=== PATIENT | male | born 1965 | race Caucasian/White ===

== ENCOUNTER → 2023-11-08 09:39 | Outpatient (REF) | payer BC, SELFPAY ==
[2023-11-08 12:33] LABS: % Basophils 0.8 % (0-2); % Eosinophils 3.2 % (0-6); % Immature Granulocytes 0.3 % (0-0.5); % Lymphocytes 15.8 % (20.5-51.1); % Monocytes 8.9 % (1.7-9.3); Absolute Basophils 0.1 10^3/uL (0-0.2); Absolute Eosinophils 0.2 10^3/uL (0-0.7); Absolute Lymphocytes 1.1 10^3/uL (1.2-3.4); Absolute Monocytes 0.6 10^3/uL (0.1-0.6); Absolute Neutrophils 5.1 10^3/uL (1.4-6.5); Hemoglobin 15.8 g/dL (13.0-18.0); Mean Corp Hgb Conc. 33.6 g/dL (33.0-37.0); Mean Corpuscular Hgb 27.3 pg (27.0-31.0); Mean Corpuscular Volume 81.2 fL (80.0-94.0); Mean Platelet Volume 9.2 fL (7.4-10.4); Nucleated Red Blood Cells % 0 % (-); Platelet Count 274 10^3/uL (130-400); Red Blood Cell Count 5.79 10^6/uL (4.70-6.10); White Blood Cell Count 7.2 10^3/uL (4.8-10.8)
[2023-11-08 13:32] LABS: ALT (SGPT) 25 U/L (0-50); AST (SGOT) 24 U/L (17-59); Albumin 4.2 g/dl (3.5-5.0); Alkaline Phosphatase 73 U/L (38-126); Blood Urea Nitrogen 21 mg/dl (9-20); Calcium 9.5 mg/dl (8.4-10.2); Carbon Dioxide 23 mmol/L (22-30); Chloride 106 mmol/L (98-107); Glucose 101 mg/dl (70-99); HDL Cholesterol 52 mg/dl; LDL Cholesterol, Calculated 132 mg/dl; Potassium 4.2 mmol/L (3.5-5.1); Sodium 135 mmol/L (135-145); Total Bilirubin 0.7 mg/dl (0.2-1.3); Total Cholesterol 196 mg/dl (50-199); Total Protein 6.8 g/dl (6.3-8.2); Triglyceride 63 mg/dl (10-149); Very Low Density Lipoprotein 12 mg/dl (0-30); eGFR > 60.00
[2023-11-08 13:56] LABS: PSA, Total - Screen 1.39 ng/ml (0.0-4.0); TSH 1.11 uIU/ml (0.47-4.68)
== END ==
LOC: HWLAB 09:39
PROVIDERS: ATTENDING PHYSICIAN Physician Assistant Medical
DX: Z00.00 Encounter for general adult medical examination without abnormal findings (principal); M25.521 Pain in right elbow
CPT/HCPCS: 36415; 73080; 80053; 80061; 84443; 85025; G0103

== ENCOUNTER → 2023-11-21 13:18 | Outpatient (REF) | payer BC, SELFPAY ==
[2023-11-21 13:52] LABS: Hematocrit 44.9 % (39.0-52.0); Mean Corp Hgb Conc. 33.4 g/dL (33.0-37.0); Mean Corpuscular Hgb 26.8 pg (27.0-31.0); Mean Corpuscular Volume 80.3 fL (80.0-94.0); Mean Platelet Volume 8.9 fL (7.4-10.4); Platelet Count 265 10^3/uL (130-400); Red Blood Cell Count 5.59 10^6/uL (4.70-6.10); Red Cell Dist. Width 13.8 % (11.5-14.5); White Blood Cell Count 6.5 10^3/uL (4.8-10.8)
[2023-11-21 14:43] LABS: ALT (SGPT) 23 U/L (0-50); AST (SGOT) 21 U/L (17-59); Alkaline Phosphatase 82 U/L (38-126); Blood Urea Nitrogen 15 mg/dl (9-20); Calcium 9.3 mg/dl (8.4-10.2); Carbon Dioxide 25 mmol/L (22-30); Chloride 105 mmol/L (98-107); Glucose 78 mg/dl (70-99); Lipase 105 U/L (23-300); Potassium 3.9 mmol/L (3.5-5.1); Sodium 135 mmol/L (135-145); Total Bilirubin 0.7 mg/dl (0.2-1.3); Total Protein 6.5 g/dl (6.3-8.2); eGFR > 60.00
== END ==
LOC: REG 13:18
PROVIDERS: ATTENDING PHYSICIAN Family Medicine
DX: R10.30 Lower abdominal pain, unspecified (principal); Z98.890 Other specified postprocedural states; K59.00 Constipation, unspecified
CPT/HCPCS: 36415; 80053; 83690; 85027

== ENCOUNTER → 2023-11-22 13:32 | Outpatient (REF) | payer BC, SELFPAY | LOC: RAD 13:32 | PROVIDERS: ATTENDING PHYSICIAN Family Medicine | DX: R10.30 Lower abdominal pain, unspecified (principal); Z98.890 Other specified postprocedural states; K59.00 Constipation, unspecified | CPT/HCPCS: 74177; Q9967 ==

== ENCOUNTER → 2024-01-30 14:27 | Outpatient (REF) | payer BC, SELFPAY | LOC: RAD 14:27 | PROVIDERS: ATTENDING PHYSICIAN Physician Assistant Medical | DX: M79.604 Pain in right leg (principal) | CPT/HCPCS: 93971 ==

== ENCOUNTER → 2024-02-28 06:35 | Day surgery (SDC) | payer BC, SELFPAY | LOC: GI 06:35 | PROVIDERS: ATTENDING PHYSICIAN Internal Medicine | DX: Z12.11 Encounter for screening for malignant neoplasm of colon (principal); K57.30 Diverticulosis of large intestine without perforation or abscess without bleeding; K64.8 Other hemorrhoids; Z98.0 Intestinal bypass and anastomosis status; Z86.010 Personal history of colon polyps; Z80.0 Family history of malignant neoplasm of digestive organs; K63.5 Polyp of colon | CPT/HCPCS: 45380; 88305 ==

== ENCOUNTER 2024-03-05 23:44 | Inpatient (IN) | payer BC, SELFPAY ==
[2024-03-05 20:34] VITALS: BP 114/69
[2024-03-05 20:51] LABS: % Basophils 0.5 % (0-2); % Eosinophils 0.7 % (0-6); % Immature Granulocytes 0.3 % (0-0.5); % Lymphocytes 12.1 % (20.5-51.1); % Monocytes 6.2 % (1.7-9.3); % Neutrophils 80.2 % (42.2-75.2); Absolute Basophils 0.1 10^3/uL (0-0.2); Absolute Eosinophils 0.1 10^3/uL (0-0.7); Absolute Immature Granulocytes 0.1 10^3/uL (0-0.05); Hematocrit 44.6 % (39.0-52.0); Hemoglobin 16.4 g/dL (13.0-18.0); Mean Corp Hgb Conc. 36.8 g/dL (33.0-37.0); Mean Corpuscular Hgb 27.9 pg (27.0-31.0); Mean Platelet Volume 8.7 fL (7.4-10.4); Nucleated Red Blood Cells % 0 % (-); Platelet Count 289 10^3/uL (130-400); Red Blood Cell Count 5.87 10^6/uL (4.70-6.10); White Blood Cell Count 16.2 10^3/uL (4.8-10.8)
[2024-03-05 21:06] LABS: ALT (SGPT) 22 U/L (0-50); AST (SGOT) 23 U/L (17-59); Albumin 4.6 g/dl (3.5-5.0); Alkaline Phosphatase 92 U/L (38-126); Blood Urea Nitrogen 16 mg/dl (9-20); Carbon Dioxide 26 mmol/L (22-30); Chloride 103 mmol/L (98-107); Glucose 132 mg/dl (70-99); Lipase 84 U/L (23-300); Potassium 3.8 mmol/L (3.5-5.1); Sodium 136 mmol/L (135-145); Total Bilirubin 1.1 mg/dl (0.2-1.3); eGFR > 60.00
[2024-03-05] MEDS: ZOFRAN 4 MG IV (21:30)
[2024-03-05] MEDS: NSS 1000 IV (21:30)
[2024-03-05] MEDS: MORPHINE SULFATE 4 MG IV (21:31)
[2024-03-05 21:34] VITALS: BMI 28.4
[2024-03-05 22:16] VITALS: BP 137/76
[2024-03-05] MEDS: DILAUDID 1 MG IV (22:32)
--- NOTE | 2024-03-05 22:41 | ED.GENMED ---
History of Present Illness
General
Chief Complaint: Abdominal Pain
Time Seen by Provider: 03/05/24 20:55
History of Present Illness
History of Present Illness:
59-year-old male with history of multiple bowel obstructions and diverticulitis with prior bowel resection presenting for abdominal pain with nausea. Patient reports symptoms started acutely this afternoon, have been worsening. Denies significant
change in stool. He reports that he did eat a lot of corn over the weekend, unsure if this is contributing to his symptoms. He has not vomiting that he feels like he needs to. Denies occulta breathing. Denies fever. Reports that symptoms feel
similar to prior bowel obstructions. Denies additional acute medical complaints
Past History
Past History
ED Past Medical History: Psychiatric ( and depression), Other (Recurrent abdominal wall hernia, small bowel obstruction, sarcoidosis), Other (Hard of hearing and wears hearing aids) and Other (Depression, diverticulitis. inguinal hernia repair)
ED Past Surgical History: Orthopedic (History of right shoulder surgery.), Tonsilectomy and Other (History of hernia surgery as an infant, wisdom teeth extraction, cyst removed from the back, colon resection for diverticulitis. Abdominal wall
incisional hernia repair �3 most recently at [facility] 2018)
Social History
Tobacco: Non-smoker
Alcohol: Former (Recovered alcoholic, sober for 26 years)
Drug: Marijuana (Occasional marijuana)
Personal:
Living: with family
Employment: Employed
Family History
Family History: Other (Noncontributory)
Phy Exam
Physical Exam
Physical Exam:
General: Well-appearing, no clinical signs of dehydration, nontoxic. Uncomfortable secondary to pain
HEENT: protecting airway
Neck: appears supple
CV: Normal heart rate, regular rhythm, no evidence of cyanosis
Resp: No accessory muscle use, no increased work of breathing, lungs clear to auscultation bilaterally
Abd: Soft and non-distended, generalized tenderness to palpation, normal bowel sounds. No rebound or guarding
Extremities: No deformities, no swelling, no erythema, pulses and sensation intact
Neuro: alert, no focal neurologic deficit
: deferred
Rectal: deferred
Psych: Normal affect
Skin: Intact
Course
Orders/Labs/Results
Orders:
Orders
03/05/24 20:44
Complete Blood Count/With Diff Urgent
Comprehensive Metabolic Panel Urgent
Lactic Acid Urgent
Lipase Urgent
03/05/24 21:19
CT Abd/pelvis W Iv Cont Urgent
Comment:
Reason For Exam: diffuse pain, hx multiple bowel surgeries
0.9% Sodium Chloride 1000 ml [Nss] 1,000 ml IV BOLUS
Morphine Sulfate 4 mg IV NOW STA
Ondansetron Injectable [Zofran] 4 mg IV NOW STA
03/05/24 22:21
HYDROmorphone [Dilaudid] 1 mg IV NOW STA
Abnormal Lab Results
03/05/24
20:44
WBC 16.2 H 10^3/uL
(4.8-10.8)
MCV 76.0 L fL
(80.0-94.0)
Abs Immat Gran (auto) 0.1 H 10^3/uL
(0-0.05)
Absolute Neuts (auto) 13.0 H 10^3/uL
(1.4-6.5)
Absolute Monos (auto) 1.0 H 10^3/uL
(0.1-0.6)
Neutrophils % 80.2 H %
(42.2-75.2)
Lymphocytes % 12.1 L %
(20.5-51.1)
Glucose 132 H mg/dl
(70-99)
03/05/24 20:44
03/05/24 20:44
Vital Signs
Initial and Last Documented VS:
Initial Vital Signs
Temp Pulse Resp BP Pulse Ox
97.9 F 64 20 114/69 99
03/05/24 20:34 03/05/24 20:34 03/05/24 20:34 03/05/24 20:34 03/05/24 20:34
Last Documented Vital Signs
Temp Pulse Resp BP Pulse Ox
97.9 F 63 16 137/76 98
03/05/24 20:34 03/05/24 22:16 03/05/24 22:16 03/05/24 22:16 03/05/24 22:17
MDM/Problems Addressed
MDM/Problems Addressed:
59-year-old male with history of bowel obstruction and diverticulitis with prior resections presenting for abdominal pain and nausea. Vital signs on arrival are normal.
On exam, patient is in no acute distress, however is uncomfortable secondary to pain. Generalized tenderness to the abdomen, multiple abdominal scars. Normal bowel sounds. Patient reports that his symptoms feel similar to prior bowel
obstructions. Given his discomfort and nausea, unable to tolerate p.o. contrast. Will obtain laboratory analysis, CT abdominal imaging with IV contrast. Morphine administered for pain.
22:45 - Labs show mild leukocytosis, however normal lactic acid. Patient still complaining of pain so Dilaudid added. CT is consistent with developing small bowel obstruction. Surgical service made aware. Plan for admission.
*Critical Care Note
Total Time (30-74mins, 75-104mins- exclusive of procedures): Not Applicable
ED Attending Note
-
Portions of this chart may have been created with voice recognition software.� Occasional wrong word or��sound alike� substitutions may have occurred due to the inherent limitations of voice recognition software.
Discharge Plan
Departure
Prescriptions:
No Action
montelukast 10 MG tablet
10 mg PO DAILYPRN PRN (Reason: Allergies)
fluticasone furoate-vilanterol [Breo Ellipta] 1 EACH blister with device
1 ea inhalation R DAILYPRN PRN (Reason: sob)
cetirizine [Zyrtec] 10 mg Tablet
10 mg PO DAILYPRN PRN (Reason: allergies)
ibuprofen 200 mg Capsule
400 mg PO Q6HPRN PRN (Reason: mild pain/fever)
Referrals:
Gerry Suero MD [Family Provider] -
Interventions
Interventions:
*Risk Screen - Suicide Last Done: 03/05/24 20:34
*General Assessment Last Done: 03/05/24 20:34
*Neglect/Abuse Screening Last Done: 03/05/24 20:34
AK-Mzzdoz-Ozbjnlzmfa Assessment Last Done: 03/05/24 21:34
Discharge Date and Time
Print Language: DANISH
[2024-03-05 23:00] VITALS: BP 135/86
--- NOTE | 2024-03-05 23:18 | HPS.HSE ---
Family Physician
-
Family Physician: Gerry Suero
Chief Complaint
-
Abdominal Pain
History of Present Illness
Patient is a 59 y/o male past medical history of multiple small bowel obstructions, sarcoidosis and depression who presents with abdominal pain. Patient reports he developed acute onset of central/left sided abdominal pain this afternoon. He
reports pains comes in waves and is similar to prior episodes of bowel obstruction in the past. He reports a bowel movement this morning, but notes it was smaller than his usual. He reports nausea without vomiting. He denies fever, sweat or chills.
Medical History
Past Medical History
Past Medical History: Reports Other
Additional Past Medical History:
Multiple Small Bowel Obstructions
Sarcoidosis
Asthma
Depression
Past Surgical History: Reports Other
Additional Past Surgical History:
Bilateral Inguinal Hernia and Recurrent Incisional Hernia Repair
Colon Resection for Diverticulitis
Right Shoulder
Social History
Tobacco: Non-smoker
Alcohol: None
Drug: Marijuana (Nightly)
Family History
Family History: Not pertinent
Allergies / Home Medications
Allergies reflects when Allergies were last updated in [employer].
Home Medications with original date entered in [employer]
Allergy/Medication List:
Allergies
Allergy/AdvReac Type Severity Reaction Status Date / Time
mussels Allergy WHEN JUICE Verified 03/05/24 20:34
COMES IN
CONTACT
W/SKIN-RASH
spinach Allergy rash when Verified 03/05/24 20:34
juice
comes in
contact
with skin
Home Medications
fluticasone furoate 200 mcg-vilanterol 25 mcg/dose inhalation powder (Breo Ellipta) 1 ea inhalation R DAILYPRN PRN sob 05/10/20
montelukast 10 mg tablet 10 mg PO DAILYPRN PRN Allergies 05/10/20
cetirizine 10 mg tablet (Zyrtec) 10 mg PO DAILYPRN PRN allergies 03/05/24
ibuprofen 200 mg capsule 400 mg PO Q6HPRN PRN mild pain/fever 03/05/24
Review of Systems
-
A 12 point ROS was completed and negative except as noted: Yes
Constitutional: Denies Fever
Respiratory: Denies Cough or Trouble Breathing
Cardiac: Denies Chest Pain or Palpitations
Abdomen/GI: Reports See HPI
Physical Exam
Vital Signs
Vital Signs
Temp Pulse Resp BP Pulse Ox
97.9 F 68 16 135/86 99
03/05/24 20:34 03/05/24 23:00 03/05/24 23:00 03/05/24 23:00 03/05/24 23:00
Physical Exam
General: Comfortable and Conversant
HEENT: Anicteric and Moist mucous membranes
Respiratory: Clear and Non Labored Respirations
Cardiac: S1/S2 and Regular Rhythm
GI: Soft and Tender (Periumbilical/LLQ without rebound or guarding )
Rectal: Deferred by Provider
Musculoskeletal: No Clubbing, No Cyanosis and No Edema
Skin: Warm and Dry
Neuro: Awake, Alert, Oriented and Nonfocal/grossly intact
Psych: Calm
Laboratory Results
-
03/05/24 20:44
03/05/24 20:44
Laboratory Results
Lactic Acid Cancelled 03/05/24 21:19
Total Bilirubin 1.1 mg/dl (0.2-1.3) 03/05/24 20:44
AST 23 U/L (17-59) 03/05/24 20:44
ALT 22 U/L (0-50) 03/05/24 20:44
Alkaline Phosphatase 92 U/L (38-126) 03/05/24 20:44
Lipase 84 U/L (23-300) 03/05/24 20:44
Data Reviewed
-
CT Scan: Report Reviewed by me
Lab Data: Labs Reviewed by me
Old Records: Reviewed
Impression/Plan
-
Small Bowel Obstruction, likely early or partial
-Consult General Surgery
-Continue NPO/IVFs
-Low threshold for NG Tube if develops worsening pain or vomiting
-Continue Zofran for Nausea
-Continue Tylenol and Dilaudid for pain
DVT proph: Lovenox
Code Status: Full Code
--- NOTE | 2024-03-05 23:39 | W.PN.UPDATE ---
Update Note
Progress Note Update
This is an addendum to the H&P written by Dia Ohara on 03/05/2024.
Patient seen and examined independently with PA.
59-year-old male past medical history of complex recurrent abdominal wall hernia status post repairs, diverticulitis status post bowel resection, history of recurrent bowel obstructions, sarcoidosis, here with abdominal pain secondary to developing
small bowel obstruction.
CT abdomen pelvis shows dilated fluid-filled small bowel loops with transition point likely at the level of the small bowel anastomosis in the anterior right hemiabdomen. N.p.o., IV fluids, Zofran/Dilaudid, general surgery consulted.
[2024-03-06 01:15] VITALS: BP 128/73
[2024-03-06 01:39] VITALS: BMI 27.7
--- NOTE | 2024-03-06 01:47 | PTCARENOTE ---
Received pt from ER,alert,oriented,ambulated from stretcher to bed with no difficulty.Physical assessment preformed pt denies pain at present,abd tender with palpation left lower quad,+ BS throughout,Pt good historian,NPO.IVF initiated at 100mls
hour.Pt sleeping after assessment.
[2024-03-06] MEDS: KCL 1005 MEQ IV ×2 (02:03→11:29)
[2024-03-06] MEDS: DILAUDID 0.25 MG IV (03:25)
[2024-03-06 07:35] VITALS: BP 130/72
[2024-03-06 07:38] LABS: Blood Urea Nitrogen 16 mg/dl (9-20); Calcium 8.9 mg/dl (8.4-10.2); Carbon Dioxide 25 mmol/L (22-30); Chloride 107 mmol/L (98-107); Estimated Creatinine Clearance 101 ml/min; Glucose 104 mg/dl (70-99); Potassium 4.2 mmol/L (3.5-5.1); Sodium 139 mmol/L (135-145); eGFR > 60.00
[2024-03-06 07:45] LABS: Hematocrit 41.4 % (39.0-52.0); Hemoglobin 14.1 g/dL (13.0-18.0); Mean Corp Hgb Conc. 34.1 g/dL (33.0-37.0); Mean Corpuscular Hgb 27.4 pg (27.0-31.0); Mean Corpuscular Volume 80.5 fL (80.0-94.0); Mean Platelet Volume 8.9 fL (7.4-10.4); Platelet Count 237 10^3/uL (130-400); Red Blood Cell Count 5.14 10^6/uL (4.70-6.10); Red Cell Dist. Width 14.1 % (11.5-14.5); White Blood Cell Count 7.8 10^3/uL (4.8-10.8)
[2024-03-06 08:23] LABS: Hepatitis C Antibody Negative (Negative)
[2024-03-06] MEDS: TYLENOL 650 MG PO (08:38)
--- NOTE | 2024-03-06 10:04 | CM ---
Addendum entered by Adela Whitaker 03/06/24 16:29:
Patient seen at bedside, patient states he does have a CPAP at home but does not use it. 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 Patient home is one story and plan is home with no needs. Patient uses the [facility] in [place]. CM will continue to follow for
discharge planning needs.
Original Note:
Patient seen at bedside sleeping. Patient PCP is Dr. Suero and he has a CPAP at home per chart review. Patient lives with . CM will return to complete assessment. CM will continue to follow for discharge planning needs.
Plan; home no needs currently anticipated.
--- NOTE | 2024-03-06 10:16 | CON.GS ---
Medical History
-
Chief Complaint: Abdominal pain
History of Present Illness:
Patient is a 59 yo M with a PMH of depression, sarcoid, asthma, diverticulitis s/p open sigmoid resection in 2008 c/b incisional hernia s/p open repair with mesh in 2010 c/b recurrence and SBO s/p open INES, SBR x2 and primary suture repair in 2016
c/b recurrence s/p open repair with biologic mesh in 2019 at [facility] c/b recurrence s/p robotic bl inguinal hernia, TAR, and hernia repair with 30 x 30 cm Bard soft mesh in 10/[address] Amezcua. Mr. Burdick presents with abdominal pain and
associated nausea over the past 24 hours. Symptoms began yesterday afternoon. Currently symptoms are improved, but not completely resolved. Reports passing flatus and a small BM this morning. He reports having multiple days of eating corn prior
to developing his symptoms. No fevers or chills. He reports 3 separate episodes of bowel obstructions in the past (2 prior to his most recent operative repair); this is the only bowel obstruction subsequent to his hernia repair by Dr. Amezcua.
Past Medical History
Past Medical History: Asthma, Psychiatric (Depression) and Other (Sarcoid)
Past Surgical History: Bowel Resection (SBR x 2 in 2016, open sigmoid resection in 2008) and Hernia Repair (Multiple hernia repair as documented above, most recently in 2000)
Social History
Tobacco: Non-Smoker
Alcohol: None
Drug: None
Family History
Family History: Reviewed & Not Pertinent
Allergies / Home Medications
Allergy/AdvReac Type Severity Reaction Status Date / Time
mussels Allergy WHEN JUICE Verified 03/05/24 20:34
COMES IN
CONTACT
W/SKIN-RASH
spinach Allergy rash when Verified 03/05/24 20:34
juice
comes in
contact
with skin
�Medication �Instructions �Recorded �Confirmed �Type
fluticasone furoate 200 1 ea inhalation R DAILYPRN PRN sob 05/10/20 03/05/24 History
mcg-vilanterol 25 mcg/dose
inhalation powder (Breo Ellipta)
montelukast 10 mg tablet 10 mg PO DAILYPRN PRN Allergies 05/10/20 03/05/24 History
cetirizine 10 mg tablet (Zyrtec) 10 mg PO DAILYPRN PRN allergies 03/05/24 03/05/24 History
ibuprofen 200 mg capsule 400 mg PO Q6HPRN PRN mild 03/05/24 03/05/24 History
pain/fever
Review of Systems
-
A 10 point review of systems was completed, and was negative except as per HPI.
Physical Exam
Vital Signs
Temp Pulse Resp BP Pulse Ox
98 F 58 22 130/72 97
03/06/24 07:35 03/06/24 07:35 03/06/24 07:35 03/06/24 07:35 03/06/24 07:35
03/05/24 03/06/24 03/07/24
06:59 06:59 06:59
Actual Weight 87.685 kg
Body Mass Index (BMI) 27.7
Lab Results
03/06/24 06:39
03/06/24 06:39
WBC 7.8 10^3/uL (4.8-10.8) 03/06/24 06:39
Hgb 14.1 g/dL (13.0-18.0) 03/06/24 06:39
Hct 41.4 % (39.0-52.0) 03/06/24 06:39
Plt Count 237 10^3/uL (130-400) 03/06/24 06:39
Abs Immat Gran (auto) 0.1 10^3/uL (0-0.05) H 03/05/24 20:44
Neutrophils % 80.2 % (42.2-75.2) H 03/05/24 20:44
Physical Exam
General: Well Developed, Well Nourished and No Apparent Distress
HEENT: Normocephalic and Anicteric
Respiratory: Non Labored Respirations
Cardiac: Regular Rhythm
GI: Soft, Non Tender, Distended (Mild, mild tympany), Incisions (Well healed) and Other (Nonperitoneal)
Musculoskeletal: No Edema
Skin: Warm and Dry
Neuro: Nonfocal/Grossly Intact
Data Reviewed
-
CT Scan: Image Personally Visualized and interpreted and Report Reviewed by me
Labs: Labs Reviewed by me
Assessment / Plan
-
Patient is a 59 yo M p/w SBO likely secondary to adhesions and prior anastomosis, possible component of dietary indiscretion
The natural history and pathophysiology of bowel obstructions was reviewed. CT scan imaging was reviewed; no evidence of pneumatosis or free air, no evidence of significant bowel wall thickening or concern for ischemia. Rapid clinical improvement
with less abdominal distention, and passage of flatus and stool. Patient is eager for dietary advancement, plan for trial of clears. No plan for operative intervention at this time.
-- Trial of clears, dietary education provided instructed to go slow
-- No plans for surgical intervention at this time
-- OOB/ambulate
-- Minimize narcotics, correct lytes
--- NOTE | 2024-03-06 14:28 | W.PN.HOSP.TC ---
Today's Communication/Plan
-
Advance to clear liquid diet and monitor.
Assessment / Plan
Assessment / Plan
Impression:
Small bowel obstruction secondary to adhesions and likely dietary indiscretion
Prior history of multiple abdominal surgeries.
Reactive leukocytosis
Plan:*
CT scan of the abdomen pelvis without oral contrast:
Postoperative changes from previous bowel resections. Dilated fluid-filled small bowel loops in the central abdomen suspicious for a developing small bowel obstruction. Transition point likely at the level of the small bowel anastomosis in the
anterior right hemiabdomen. Overall evaluation is somewhat limited in the absence of oral contrast.
Surgery input appreciated
Clinically improved with resolution of nausea and abdominal pain. Passing gas and had small BM.
Exam with benign abdomen
Lab work unremarkable with now trending down leukocytosis
Had never required NG tube.
Advance to clear liquid diet and monitor closely.
Anticipated Discharge: 24 - 48 hours
Subjective/Interval History
-
Date of Service: March 06, 2024
Objective Data
-
Labs:
Laboratory Results
03/06/24
06:39
WBC 7.8
Hgb 14.1
Hct 41.4
Plt Count 237
Sodium 139
Potassium 4.2
Chloride 107
Carbon Dioxide 25
BUN 16
Creatinine 0.8
Glucose 104 H
Calcium 8.9
Vital Signs:
Vital Signs
Temp Pulse Resp BP Pulse Ox
98 F 58 22 130/72 97
03/06/24 07:35 03/06/24 07:35 03/06/24 07:35 03/06/24 07:35 03/06/24 07:35
Physical Exam
-
General: Well Developed and No Apparent Distress
HEENT: Normocephalic, Atraumatic and Moist Mucous Membranes
Respiratory: Clear to Auscultation
Cardiac: Regular Rhythm and S1/S2; Negative Murmur, Rub or Gallop
GI: Soft, Nontender, Nondistended and Normal Bowel Sounds; Negative Organomegaly
Rectal: Deferred by Provider
Musculoskeletal: No Clubbing, No Cyanosis and No Edema
Skin: Negative Rash
Neuro: Nonfocal/Grossly Intact
[2024-03-06 15:40] VITALS: BP 124/73
[2024-03-06] MEDS: LOVENOX 40 MG SC (17:01)
[2024-03-06 23:26] VITALS: BP 120/70
[2024-03-07] MEDS: KCL IV (00:14)
[2024-03-07] MEDS: MYLICON 80 MG PO (00:41)
[2024-03-07 06:00] VITALS: BMI 27.8
[2024-03-07 07:05] VITALS: BP 145/78
[2024-03-07 08:29] LABS: % Eosinophils 4.1 % (0-6); % Immature Granulocytes 0.3 % (0-0.5); % Lymphocytes 18.1 % (20.5-51.1); % Monocytes 8.5 % (1.7-9.3); Absolute Basophils 0.1 10^3/uL (0-0.2); Absolute Eosinophils 0.3 10^3/uL (0-0.7); Absolute Lymphocytes 1.1 10^3/uL (1.2-3.4); Absolute Monocytes 0.5 10^3/uL (0.1-0.6); Absolute Neutrophils 4.1 10^3/uL (1.4-6.5); Hematocrit 47.4 % (39.0-52.0); Hemoglobin 16.1 g/dL (13.0-18.0); Mean Corpuscular Hgb 27.9 pg (27.0-31.0); Mean Platelet Volume 9.5 fL (7.4-10.4); Nucleated Red Blood Cells % 0 % (-); Platelet Count 256 10^3/uL (130-400); Red Blood Cell Count 5.78 10^6/uL (4.70-6.10); White Blood Cell Count 6.1 10^3/uL (4.8-10.8)
[2024-03-07 08:59] LABS: Blood Urea Nitrogen 10 mg/dl (9-20); Calcium 9.3 mg/dl (8.4-10.2); Carbon Dioxide 25 mmol/L (22-30); Estimated Creatinine Clearance 101 ml/min; eGFR > 60.00
--- NOTE | 2024-03-07 09:06 | W.PN.GS2 ---
Today's Communication / Plan
-
Low residue diet
Dispo planning.
Assessment / Plan
-
This is a 59-year-old male who presents with with a history of diverticulitis status post open sigmoid resection in 2008 complicated by an incisional hernia status post open repair with mesh in 2010 complicated by recurrence and small bowel
obstruction status post open INES, SBR x 2 and primary suture repair in 2016 complicated by another recurrence status post open repair with biologic mesh in 2019 at [facility] followed by yet another recurrence status post robotic TAR with bilateral
inguinal hernia repair using a 30 x 30 Bard soft mesh in [place] [address] Amezcua. He presented to our hospital on 02/28/2024 with a small bowel obstruction likely due to dietary indiscretion, now with return of bowel function. Exam is reassuring.
Advance to a low residue diet.
If he tolerates this well, anticipate discharge later today.
Patient can follow-up with Dr. Amezcua as needed as an outpatient.
Time Spent
Total Time Spent with Patient (in minutes): 20
Subjective Data
-
Date of Service: March 07, 2024
Interval Events:
No acute events overnight. Slept well. Pain Controlled. Denies Nausea/Vomiting, +bowel function. Tolerating diet.
Objective Data
-
Intake and Output
03/06/24 03/07/24 03/08/24
06:59 06:59 06:59
Intake Total 3180 / 3180
Output Total 50 / 50
Balance 3130 / 3130
Intake:
Oral fluids 1380 / 1380
IV fluids (Total) 1800 / 1800
Output:
Urine, Voided 50 / 50
Other:
Number of approximated MODERATE 5
amounts of urine
Number of approximated LARGE 1
amounts of urine
Vital Signs
Temp Pulse Resp BP Pulse Ox
97.9 F 50 17 145/78 96
07/24/24 07:05 03/07/24 07:05 03/07/24 07:05 03/07/24 07:05 03/07/24 07:05
Lab Results
03/07/24 07:07
03/07/24 07:07
Calcium 9.3 mg/dl (8.4-10.2) 03/07/24 07:07
Total Bilirubin 1.1 mg/dl (0.2-1.3) 03/05/24 20:44
AST 23 U/L (17-59) 03/05/24 20:44
ALT 22 U/L (0-50) 03/05/24 20:44
Alkaline Phosphatase 92 U/L (38-126) 03/05/24 20:44
Total Protein 7.0 g/dl (6.3-8.2) 03/05/24 20:44
Albumin 4.6 g/dl (3.5-5.0) 03/05/24 20:44
Physical Exam
-
GENERAL/NEURO: Awake, Alert, no distress
CHEST: Unlabored breathing on RA
ABDOMEN: Soft, Non-Tender, Non-Distended
EXTREMITIES: warm, well perfused, no jaundice, no cyanosis, no edema
[2024-03-07 09:47] LABS: Chloride 104 mmol/L (98-107); Glucose 87 mg/dl (70-99); Potassium 4.2 mmol/L (3.5-5.1); Sodium 138 mmol/L (135-145)
--- NOTE | 2024-03-07 12:08 | W.DS.TRANS ---
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
-
Discharge Instructions:
Discharge Diagnosis/Procedures SBO
Diet Low Residue
Instructions:
Stand-Alone Forms:
Changes to Home Medications: No
Discharge Medications:
DC Medications w/original date entered in [employer]
fluticasone furoate 200 mcg-vilanterol 25 mcg/dose inhalation powder (Breo Ellipta) 1 ea inhalation R DAILYPRN PRN sob 05/10/20
montelukast 10 mg tablet 10 mg PO DAILYPRN PRN Allergies 05/10/20
cetirizine 10 mg tablet (Zyrtec) 10 mg PO DAILYPRN PRN allergies 03/05/24
ibuprofen 200 mg capsule 400 mg PO Q6HPRN PRN mild pain/fever 03/05/24
Home Medication Changes
Pending Results: No
[2024-03-07 12:43] VITALS: BP 132/82
== END 2024-03-07 12:51 | disposition home or self-care (01) | DRG 390 ==
LOC: 2 SOUTH 23:44
PROVIDERS: Emergency Medicine; Physician Assistant Medical; ADMITTING PHYSICIAN Hospitalist; ATTENDING PHYSICIAN Internal Medicine; CONSULT PHYSICIAN Surgery; EMERGENCY PHYSICIAN Student in an Organized Health Care Education/Training Program; FAMILY PHYSICIAN Family Medicine
DX: K56.50 Intestinal adhesions [bands], unspecified as to partial versus complete obstruction (principal); J45.909 Unspecified asthma, uncomplicated; D86.9 Sarcoidosis, unspecified; F10.21 Alcohol dependence, in remission; F12.90 Cannabis use, unspecified, uncomplicated
CPT/HCPCS: 74177; 80048; 80053; 83605; 83690; 85025; 85027; 86803; 93005; 96361; 96374; 96375; 99285; Q9967

== ENCOUNTER → 2024-06-04 10:01 | Outpatient (REF) | payer BC, SELFPAY | LOC: MRI 3T 10:01 | PROVIDERS: ATTENDING PHYSICIAN Student in an Organized Health Care Education/Training Program; FAMILY PHYSICIAN Physician Assistant Medical | DX: H90.3 Sensorineural hearing loss, bilateral (principal); H93.13 Tinnitus, bilateral; F80.9 Developmental disorder of speech and language, unspecified | CPT/HCPCS: 70553; A9575 ==

== ENCOUNTER → 2024-07-16 15:21 | Outpatient (REF) | payer BC, SELFPAY | LOC: HWRAD 15:21 | PROVIDERS: ATTENDING PHYSICIAN Physician Assistant Medical | DX: M79.604 Pain in right leg (principal) | CPT/HCPCS: 72110; 73502 ==

== ENCOUNTER → 2024-08-20 08:32 | Outpatient (REF) | payer BC, SELFPAY | LOC: HWRAD 08:32 | PROVIDERS: ATTENDING PHYSICIAN Internal Medicine Critical Care Medicine; FAMILY PHYSICIAN Physician Assistant Medical | DX: R93.89 Abnormal findings on diagnostic imaging of other specified body structures (principal); D86.0 Sarcoidosis of lung | CPT/HCPCS: 71250 ==

== ENCOUNTER 2024-09-11 14:00 | Outpatient (RCR) | payer BC, SELFPAY | END 2024-09-11 23:59 | disposition home or self-care (01) | LOC: RPT 14:00 | PROVIDERS: ATTENDING PHYSICIAN Physician Assistant Medical | DX: M25.551 Pain in right hip (principal); G89.29 Other chronic pain; Z73.6 Limitation of activities due to disability | CPT/HCPCS: 97110; 97162 ==

== ENCOUNTER 2024-09-19 15:06 | Outpatient (RCR) | payer BC, SELFPAY | END 2024-09-20 07:01 | disposition home or self-care (01) | LOC: RPT 15:06 | PROVIDERS: ATTENDING PHYSICIAN Physician Assistant Medical | DX: M25.551 Pain in right hip (principal); G89.29 Other chronic pain; Z73.6 Limitation of activities due to disability | CPT/HCPCS: 97110 ==

== ENCOUNTER → 2024-10-13 09:42 | Outpatient (REF) | payer BC, SELFPAY | LOC: PAVMRI 09:42 | PROVIDERS: ATTENDING PHYSICIAN Orthopaedic Surgery; FAMILY PHYSICIAN Family Medicine | DX: M25.561 Pain in right knee (principal) | CPT/HCPCS: 73721 ==

== ENCOUNTER 2025-01-19 11:31 | Observation (INO) | payer BC, SELFPAY ==
[2025-01-19] VITALS (8 sets, daily range): BP systolic 99–144; BP diastolic 56–80; BMI 25.2; BMI 24.6
[2025-01-19 07:44] LABS: % Basophils 0.4 % (0-2); % Eosinophils 1.1 % (0-6); % Immature Granulocytes 0.4 % (0-0.5); % Lymphocytes 8.3 % (20.5-51.1); % Monocytes 5.3 % (1.7-9.3); % Neutrophils 84.5 % (42.2-75.2); Absolute Basophils 0.1 10^3/uL (0-0.2); Absolute Eosinophils 0.1 10^3/uL (0-0.7); Absolute Immature Granulocytes 0.1 10^3/uL (0-0.05); Absolute Lymphocytes 0.9 10^3/uL (1.2-3.4); Absolute Monocytes 0.6 10^3/uL (0.1-0.6); Absolute Neutrophils 9.6 10^3/uL (1.4-6.5); Hematocrit 45.7 % (39.0-52.0); Hemoglobin 15.3 g/dL (13.0-18.0); Mean Corp Hgb Conc. 33.5 g/dL (33.0-37.0); Mean Corpuscular Volume 83.5 fL (80.0-94.0); Mean Platelet Volume 9.1 fL (7.4-10.4); Nucleated Red Blood Cells % 0 % (-); Platelet Count 255 10^3/uL (130-400); Red Blood Cell Count 5.47 10^6/uL (4.70-6.10); White Blood Cell Count 11.3 10^3/uL (4.8-10.8)
[2025-01-19 08:07] LABS: ALT (SGPT) 18 U/L (0-50); AST (SGOT) 18 U/L (17-59); Albumin 4.1 g/dl (3.5-5.0); Alkaline Phosphatase 84 U/L (38-126); Blood Urea Nitrogen 23 mg/dl (9-20); Calcium 9.9 mg/dl (8.4-10.2); Carbon Dioxide 30 mmol/L (22-30); Chloride 108 mmol/L (98-107); Glucose 147 mg/dl (70-99); Potassium 3.8 mmol/L (3.5-5.1); Sodium 142 mmol/L (135-145); Total Bilirubin 0.9 mg/dl (0.2-1.3); Total Protein 6.6 g/dl (6.3-8.2); eGFR > 60.00
--- NOTE | 2025-01-19 09:14 | ED.GENMED ---
History of Present Illness
General
Chief Complaint: Abdominal Pain
Source: patient
Time Seen by Provider: 01/19/25 09:07
History of Present Illness
History of Present Illness:
This patient is a 59-year-old male presents emergency department with complaints of abdominal pain that started approximate 11 PM last night. The pain is constant but will sometimes wax and wane in intensity without specific provoking or relieving
factors. The pain is mostly in the mid to lower abdomen but sometimes will go around to his back. He is describes pacing around and feeling very uncomfortable all night. The pain is 'sharp'. He is nauseous but denies vomiting, fever, chills,
chest pain, new shortness of breath. He is slightly hungry. He did have a very small brown bowel movement this morning without pain or blood.
Past History
Past History
ED Past Medical History: Psychiatric ( and depression), Other (Recurrent abdominal wall hernia, small bowel obstruction, sarcoidosis), Other (Hard of hearing and wears hearing aids) and Other (Depression, diverticulitis. inguinal hernia repair)
ED Past Surgical History: Orthopedic (History of right shoulder surgery.), Tonsilectomy and Other (History of hernia surgery as an infant, wisdom teeth extraction, cyst removed from the back, colon resection for diverticulitis. Abdominal wall
incisional hernia repair �3 most recently at [facility] 2019)
Social History
Tobacco: Non-smoker
Alcohol: Former (Recovered alcoholic, sober for 26 years)
Drug: Marijuana (Occasional marijuana)
Personal:
Living: with family
Employment: Employed
Family History
Family History: Other (Noncontributory)
Phy Exam
Physical Exam
Physical Exam:
GENERAL: Alert , appears uncomfortable, shifting around in the bed
EYE: pupils equal and reactive
NECK: Supple, no significant adenopathy.
ENT: o/p clr, mmm.
CARDIAC: Regular rate and rhythm .
LUNGS: Clear breath sounds bilaterally, no acute respiratory distress, no wheezes/rales/rhonchi
ABDOMEN: Soft, moderate diffuse tenderness greatest at periumbilical and lower abdominal area, no r/g, no cvat, normal active bowel sounds
NEUROLOGICAL: Alert and oriented, no focal neuro deficits
SKIN: Warm and dry, skin intact.
MUSCULOSKELETAL: No edema, well perfused.
PSYCH: Normal and appropriate interaction.
Course
Orders/Labs/Results
Orders:
Orders
01/19/25 07:38
CMP [Comprehensive Metabolic Panel] Urgent
Complete Blood Count/With Diff Urgent
Lipase Urgent
Comment: ADD ON
01/19/25 09:08
Add On- LAB Urgent
Tests Added?: urinalysis
01/19/25 09:18
CT Abd/Pel (IV only)-DH only Urgent
Comment:
Reason For Exam: hx bowel obstructions, abd pain
0.9% Sodium Chloride 500 ml [Nss] 500 ml IV BOLUS
Morphine Sulfate 6 mg IV NOW STA
Ondansetron Injectable [Zofran] 4 mg IV NOW STA
01/19/25 09:19
Urinalysis Routine
01/19/25 09:27
Add On- LAB Urgent
Tests Added?: lipase
Abnormal Lab Results
01/19/25
07:38
WBC 11.3 H 10^3/uL
(4.8-10.8)
Abs Immat Gran (auto) 0.1 H 10^3/uL
(0-0.05)
Absolute Neuts (auto) 9.6 H 10^3/uL
(1.4-6.5)
Absolute Lymphs (auto) 0.9 L 10^3/uL
(1.2-3.4)
Neutrophils % 84.5 H %
(42.2-75.2)
Lymphocytes % 8.3 L %
(20.5-51.1)
Chloride 108 H mmol/L
(98-107)
BUN 23 H mg/dl
(9-20)
Glucose 147 H mg/dl
(70-99)
01/19/25 07:38
01/19/25 07:38
Vital Signs
Initial and Last Documented VS:
Initial Vital Signs
Temp Pulse Resp BP Pulse Ox
98.3 F 57 16 144/76 98
01/19/25 07:29 01/19/25 07:29 01/19/25 07:29 01/19/25 07:29 01/19/25 07:29
Last Documented Vital Signs
Temp Pulse Resp BP Pulse Ox
98.3 F 45 16 142/80 99
01/19/25 07:29 01/19/25 09:33 01/19/25 09:33 01/19/25 09:32 01/19/25 09:33
Update Note
Update Note:
Patient presents to the Emergency Department with ___abdominal pain
Number and Complexity of Problems Addressed at the Encounter
� Chronic conditions affecting care:
� Acute Exacerbation and/or Progression of Chronic Illness:
� Differential Diagnosis includes: But not limited to bowel obstruction, kidney stone, diverticulitis, etc. etc. etc.
Amount and/or Complexity of Data to be Reviewed and Analyzed
� I performed an independent evaluation of and my interpretation is:
EKG:
CT:Several dilated loops of small bowel in left abdomen suggesting developing obstruction versus ileus. Progressed.
Small bilateral groundglass opacities. These are stable suggesting parenchymal scarring or interstitial lung disease.
Hypodense hepatic lesion. Stable from 2019. Probable benign hemangioma considering the stability.
Diverticulosis. Stable
Moderate prostate hypertrophy. Stable
Xrays:
Laboratory Studies: Mild white blood cell count elevation
Other:
� Review of other/old records reveals: Discharge summary from February 2020 for reviewed, admitted with an SBO, history of multiple abdominal surgeries
� Clinical information was obtained by an independent historian:
� Prescriptions/Medications Considered but not given:
� Further testing considered but not performed:
Risk of Complications and/or Morbidity or Mortality of Patient Management
� Social determinants of health affecting care:
� Discussion with other providers (PCP, Hospitalists, Consultants, etc):
� Escalation of care including admission/observation vs risk of discharge considered: 10:49 AM patient updated regarding his results, much more comfortable now. Case discussed with hospitalist for admission.
ED Attending Note
-
Portions of this chart may have been created with voice recognition software.� Occasional wrong word or��sound alike� substitutions may have occurred due to the inherent limitations of voice recognition software.
Discharge Plan
Departure
Patient Disposition: Admit
Date of Disposition: 01/19/25
Time of Disposition: 10:48
Admit to: Telemetry
Presentation/result/management discussed w/ accepting MD/DO: Hospitalist
Discharge Problem:
Small bowel obstruction
Prescriptions:
No Action
montelukast 10 MG tablet
10 mg PO DAILYPRN PRN (Reason: Allergies)
fluticasone furoate-vilanterol [Breo Ellipta] 1 EACH blister with device
1 ea inhalation R DAILYPRN PRN (Reason: sob)
cetirizine [Zyrtec] 10 mg Tablet
10 mg PO DAILYPRN PRN (Reason: allergies)
ibuprofen 200 mg Capsule
400 mg PO Q6HPRN PRN (Reason: mild pain/fever)
Referrals:
Luis Daniel Quintana MD [Family Provider, Family Practice]
Interventions
Interventions:
*Risk Screen - Suicide Last Done: 01/19/25 07:29
*General Assessment Last Done: 01/19/25 09:15
*Neglect/Abuse Screening Last Done: 01/19/25 07:29
*ED- Fall Risk Assessment Last Done: 01/19/25 09:15
*ED COVID-19 Vaccine History Last Done: 01/19/25 09:15
DS-Ijfneq-Bssspwjqsk Assessment Last Done: 01/19/25 09:15
Discharge Date and Time
Print Language: IRISH
[2025-01-19] MEDS: MORPHINE SULFATE 6 MG IV (09:25)
[2025-01-19] MEDS: NSS 500 IV (09:25)
[2025-01-19] MEDS: ZOFRAN 4 MG IV (09:25)
[2025-01-19 10:09] LABS: Lipase 64 U/L (23-300)
--- NOTE | 2025-01-19 10:52 | HPS.HSE ---
Family Physician
-
Family Physician: Luis Daniel Quintana
Chief Complaint
-
Abdominal pain
History of Present Illness
Patient is a pleasant 59 years old male with history of depression, small bowel obstruction, diverticulitis, inguinal hernia repair who came to the ER with abdominal pain which started last night, pain is constant and located in mid lower abdomen,
radiates to the back, associated with nausea but denies any vomiting, no chest pain or shortness of breath, no fever or chills at home, history of small bowel obstruction in the past.
CT Abdomen pelvis shows:
Several dilated loops of small bowel in left abdomen suggesting developing obstruction versus ileus. Progressed.
Small bilateral groundglass opacities. These are stable suggesting parenchymal scarring or interstitial lung disease.
Hypodense hepatic lesion. Stable from 2019. Probable benign hemangioma considering the stability.
Patient seen and examined at bedside, feeling better now after morphine, will be admitted under hospitalist service with surgery consult.
Medical History
Past Medical History
Past Medical History: Reports Psychiatric and Other
Additional Past Medical History:
Psychiatric ( and depression), Other (Recurrent abdominal wall hernia, small bowel obstruction, sarcoidosis), Other (Hard of hearing and wears hearing aids) and Other (Depression, diverticulitis. inguinal hernia repair)
Past Surgical History: Reports Other
Additional Past Surgical History:
Orthopedic (History of right shoulder surgery.), Tonsilectomy and Other (History of hernia surgery as an , wisdom teeth extraction, cyst removed from the back, colon resection for diverticulitis. Abdominal wall incisional hernia repair �3 most
recently at [facility] 2019)
Social History
Tobacco: Non-smoker
Alcohol: Former
Drug: Marijuana (Occasional)
Personal:
Living: With Family
Employment: Employed
Family History
Family History: Not pertinent
Allergies / Home Medications
Allergies reflects when Allergies were last updated in [employer].
Home Medications with original date entered in [employer]
Allergy/Medication List:
Allergies
Allergy/AdvReac Type Severity Reaction Status Date / Time
mussels Allergy WHEN JUICE Verified 03/05/24 20:34
COMES IN
CONTACT
W/SKIN-RASH
spinach Allergy rash when Verified 03/05/24 20:34
juice
comes in
contact
with skin
Home Medications
fluticasone furoate 200 mcg-vilanterol 25 mcg/dose inhalation powder (Breo Ellipta) 1 ea inhalation R DAILYPRN PRN sob 05/10/20
montelukast 10 mg tablet 10 mg PO DAILYPRN PRN Allergies 05/10/20
cetirizine 10 mg tablet (Zyrtec) 10 mg PO DAILYPRN PRN allergies 03/05/24
ibuprofen 200 mg capsule 400 mg PO Q6HPRN PRN mild pain/fever 03/05/24
Review of Systems
-
A 12 point ROS was completed and negative except as noted: Yes
Constitutional: Reports Weight Loss (Intentional); Denies Fever, Weight Gain, Fatigue or Sleep Disturbance
EENT: Denies Tearing, Sore Throat, Mouth Pain, Mouth Swelling or Runny Nose
Respiratory: Reports Cough; Denies Hemoptysis or Trouble Breathing
Cardiac: Denies Chest Pain, Diaphoresis, Palpitations or Syncope
Abdomen/GI: Reports Abdominal Pain and Nausea; Denies Vomiting, Diarrhea, Constipated, Bloody Stools or Black Stools
: Denies Dysuria, Frequency, Flank Pain, Incontinence, Difficulty Voiding, Urgency, Bleeding or Dark Urine
Musculoskeletal: Denies Joint Pain, Joint Swelling, Muscle Pain, Muscle Stiffness or Edema
Skin: Denies Itching or Rash
Neurological: Denies Dizzy, Headache, Weakness or Numbness
Endocrine: Denies Polyuria, Polydipsia or Temp Intolerance
Hematologic/Lymphatic: Denies Bleeding, Swollen Glands or Bruising
Psych: Reports Calm; Denies Depression, Anxiety or Panic Disorder
Physical Exam
Vital Signs
Vital Signs
Temp Pulse Resp BP Pulse Ox
98.3 F 45 16 142/80 99
01/19/25 07:29 01/19/25 09:33 01/19/25 09:33 01/19/25 09:32 01/19/25 09:33
Physical Exam
General: Well Developed, Well Nourished, No Apparent Distress, Comfortable and Good Appetite; No Pain, Chills or Sweats
HEENT: NormoCephalic, Moist mucous membranes, Atraumatic, Good Dentition, PERRLA, Nose Appears Normal and Ears Appear Normal
Respiratory: Rales and Rhonchi
Cardiac: S1/S2 and Regular Rhythm
Breast: Deferred by me
GI: Soft, Non Tender, Non Distended and Normal Bowel Sounds
Genito-urinary: Deferred by me
Musculoskeletal: No Clubbing, No Cyanosis and No Edema
Skin: Warm; No Rash, Jaundice, Ulcers, Lesions or Decubitus Ulcers
Neuro: Awake, Alert, Oriented, AO x 3, No Motor Deficits, Nonfocal/grossly intact and Cranial Nerves Intact
Hematologic/Lymphatic: No Lymphadenopathy
Psych: Calm
Laboratory Results
-
01/19/25 07:38
01/19/25 07:38
Laboratory Results
Total Bilirubin 0.9 mg/dl (0.2-1.3) 01/19/25 07:38
AST 18 U/L (17-59) 01/19/25 07:38
ALT 18 U/L (0-50) 01/19/25 07:38
Alkaline Phosphatase 84 U/L (38-126) 01/19/25 07:38
Lipase Cancelled 01/19/25 09:18
Data Reviewed
-
Diagnostic Radiology: Report Reviewed by me
CT Scan: Report Reviewed by me
Medical Tests (Nuc Med, Echo, EKG etc): Report Reviewed by me
Lab Data: Labs Reviewed by me
Old Records: Reviewed
Impression/Plan
-
IMPRESSION:
Patient is a pleasant 59 years old male with history of depression, small bowel obstruction, diverticulitis, inguinal hernia repair who came to the ER with abdominal pain which started last night, pain is constant and located in mid lower abdomen,
radiates to the back, associated with nausea but denies any vomiting, no chest pain or shortness of breath, no fever or chills at home, history of small bowel obstruction in the past.
CT Abdomen pelvis shows:
Several dilated loops of small bowel in left abdomen suggesting developing obstruction versus ileus. Progressed.
Small bilateral groundglass opacities. These are stable suggesting parenchymal scarring or interstitial lung disease.
Hypodense hepatic lesion. Stable from 2020. Probable benign hemangioma considering the stability.
Admitted to the hospital, surgery consulted.
Assessment/plan:
Small bowel obstruction (recurrent)
CT scan shows several dilated loops of small intestine in the left abdomen suggesting developing obstruction versus ileus.
Keep n.p.o. for now.
Surgery consult.
Serial abdominal exam.
IV fluid.
Pain and nausea control.
History of sarcoidosis
As needed breathing treatment.
Continue Singulair
CODE STATUS: Full code
DVT prophylaxis: Lovenox
Diet: N.p.o. for now
Total time spent on today's encounter was 75 minutes which included time spent in counseling the patient/family regarding diagnosis and treatment plan as listed above, goals of care, and symptom management. Case was discussed with nursing staff,
specialists, and care coordinators/case management. All labs and imaging personally reviewed by me. Remainder the time spent in detailed review of previous records, lab data, imaging, and other medical provider documentation.
[2025-01-19 11:45] LABS: Urine Albumin 1+ (Neg - Trace); Urine Bilirubin Negative (Negative); Urine Character Clear (Clear); Urine Color Yellow; Urine Glucose Negative (Negative); Urine Ketone Negative (Negative); Urine Leukocyte Negative (Negative); Urine Nitrite Negative (Negative); Urine Occult Blood Negative (Negative); Urine Urobilinogen Negative (Neg - 1+)
[2025-01-19 12:30] LABS: Urine Red Blood Cell 0-2 /HPF (0-2)
[2025-01-19] MEDS: MORPHINE SULFATE 2 MG IV ×2 (12:58→20:22)
[2025-01-19] MEDS: NSS 1000 IV (13:00)
--- NOTE | 2025-01-19 13:16 | PTCARENOTE ---
Pt. assessment and admission complete. Pt able to ambulate to bed without assistance. Pt. complains of 7/10 sharp pain to LLQ. IVF started and PRN pain medication given. Plan of care discussed with pt. and he states understanding, will be kept NPO
while awaiting surgical consult. Pt. states no further needs at this time.
--- NOTE | 2025-01-19 15:13 | CON.GS ---
Addendum entered and electronically signed by Manuelito Elaine MD 01/20/25 10:35:
I saw and examined the patient.
The Det[employer] Maker [employer]itter's note was reviewed and I agree with the note.
Comment: Pt seen today and evaluated at bedside. He has passed several BMs and flatus and is feeling better. He tolerated clears this am. AFVSS, belly soft, nt. OK to ADAT ad DC home when tolerating LRD. Dietary education provided. He has had many
SBOs over the years and understands the recommended diet well.
Original Note:
Consultation
-
Date/Time Consultation Requested: 01/19/25 1243
Date/Time Consultation Performed: 01/19/25 1405
Requesting Provider: Trey
Performing Provider: Jaclyn Elaine
Reason for Consultation: sbo
Medical History
-
Chief Complaint: abd pain
History of Present Illness:
Mr Burdick is a 59 yo male with a h/o open sigmoid resection in 2008 for diverticulitis with subsequent development of incisional hernia with open incisional hernia repair with mesh in 2010, SBO with open INES and SBR x2 with a primary incisional
hernia repair in 2016 ([facility]), with development of incisional hernia s/p open repair with biologic mesh in 2018 at [facility] with recurrence of hernia s/p RAL incisional hernia repair with bilateral inguinal hernia repairs in 2020 ([facility]), and a
SBO in 2023 which resolved with nonoperative measures who presents with sudden onset of generalized abdominal pain last night. He reports he has been doing quite well over the last 6 months and has lost 30-40 lbs with diet and exercise. Last night,
he grazed slowly on food throughout the night during his breaks at work but did not have a large meal. He went to bed as usual but awakened from sleep with severe abdominal pain which persisted causing him to present through the ED for evaluation.
He had mild nausea but no vomiting. He reports no appetite. This morning, he passed several hard pieces of stool but has not been passing flatus. He notes some relief in pain currently and is resting comfortably. On exam, his abdomen is mildly
distended and without tenderness.
Past Medical History
Past Medical History: Asthma, Diverticulitis and Other (sarcoidosis, sbos)
Past Surgical History: Bowel Resection (SBR x 2 in 2016, open sigmoid resection in 2008), Hernia Repair (Open incisional hernia repair with mesh 2010, primary hernia repair at time of SBR 2016, open incisional hernia repair with biologic mesh 2018,
RAL incisional and inguinal hernia repairs with mesh 2020), Orthopedic (right shoulder) and Other (Last colonoscopy 2023)
Social History
Tobacco: Former Smoker
Drug: Marijuana
Personal:
Living: With Family
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
Family History
Family History: Cancer (brother with colon ca)
Allergies / Home Medications
Allergy/AdvReac Type Severity Reaction Status Date / Time
mussels Allergy WHEN JUICE Verified 03/05/24 20:34
COMES IN
CONTACT
W/SKIN-RASH
spinach Allergy rash when Verified 03/05/24 20:34
juice
comes in
contact
with skin
�Medication �Instructions �Recorded �Confirmed �Type
fluticasone furoate 200 1 ea inhalation R DAILYPRN PRN sob 05/10/20 03/05/24 History
mcg-vilanterol 25 mcg/dose
inhalation powder (Breo Ellipta)
montelukast 10 mg tablet 10 mg PO DAILYPRN PRN Allergies 05/10/20 03/05/24 History
cetirizine 10 mg tablet (Zyrtec) 10 mg PO DAILYPRN PRN allergies 03/05/24 03/05/24 History
ibuprofen 200 mg capsule 400 mg PO Q6HPRN PRN mild 03/05/24 03/05/24 History
pain/fever
Review of Systems
-
History Source: Patient
All other systems: Negative unless noted
A 10 point review of systems was completed, and was negative except as per HPI.
Physical Exam
Vital Signs
Temp Pulse Resp BP Pulse Ox
97.3 F 56 16 123/58 98
01/19/25 12:46 01/19/25 12:46 01/19/25 12:46 01/19/25 12:46 01/19/25 12:46
01/18/25 01/19/25 01/20/25
06:59 06:59 06:59
Actual Weight 79.832 kg
Body Mass Index (BMI) 24.6
Lab Results
01/19/25 07:38
01/19/25 07:38
WBC 11.3 10^3/uL (4.8-10.8) H 01/19/25 07:38
Hgb 15.3 g/dL (13.0-18.0) 01/19/25 07:38
Hct 45.7 % (39.0-52.0) 01/19/25 07:38
Plt Count 255 10^3/uL (130-400) 01/19/25 07:38
Abs Immat Gran (auto) 0.1 10^3/uL (0-0.05) H 01/19/25 07:38
Neutrophils % 84.5 % (42.2-75.2) H 01/19/25 07:38
Physical Exam
General: Well Developed and Well Nourished
HEENT: Moist Mucous Membranes
Respiratory: Non Labored Respirations
GI: Soft, Non Tender and Distended (mild)
Skin: Warm and Dry
Neuro: Awake, Alert and AO x 3
Psych: Calm
Data Reviewed
-
CT Scan: Image Personally Visualized and interpreted, Report Reviewed by me, Discussed with Physician and Discussed with Patient
Labs: Labs Reviewed by me, Discussed with Physician and Discussed with Patient
Old Records: Reviewed
Assessment / Plan
-
59 yo male with a history of sigmoid resection, SBR x2 with INES for sbo and multiple hernia repairs. He was admitted in February of 2024 with SBO which was able to be managed nonoperatively at that time. He now presents with abdominal pain which began
overnight with distention. He has passed a small amount of stool this am but no flatus since. He had mild nausea at onset of symptoms but currently denies active nausea although he has no appetite. He is afebrile, VSS. Mild leukocytosis present.
Mild distention without tenderness on exam. CT imaging reviewed with suspected partial sbo with transition point near the distal small bowel anastomosis site likely d/t adhesions. Both anastomosis sites do appear patent on imaging. No free air. No
evidence of bowel threat, compromise or closed loop obstruction. Thus far symptoms are improving with bowel rest and supportive measures.
Plan:
Continue NPO with ice chips/sips of clears until passing more flatus then will advance to clear liquid trays
IVF as per primary team
Analgesics/Antiemetics
Hold PO bowel regimen
No emergent surgery planned, will follow at this point with nonoperative measures for continued improvement
[2025-01-19] MEDS: LOVENOX 40 MG SC (17:47)
[2025-01-19] MEDS: TYLENOL 650 MG PO (20:29)
[2025-01-19] MEDS: SINGULAIR 10 MG PO (22:07)
[2025-01-20 04:42] LABS: Hematocrit 38.4 % (39.0-52.0); Hemoglobin 13.1 g/dL (13.0-18.0); Mean Corp Hgb Conc. 34.1 g/dL (33.0-37.0); Mean Corpuscular Hgb 28.5 pg (27.0-31.0); Mean Corpuscular Volume 83.5 fL (80.0-94.0); Mean Platelet Volume 9.4 fL (7.4-10.4); Platelet Count 203 10^3/uL (130-400); Red Cell Dist. Width 14.3 % (11.5-14.5); White Blood Cell Count 5.9 10^3/uL (4.8-10.8)
[2025-01-20 04:58] LABS: Blood Urea Nitrogen 16 mg/dl (9-20); Calcium 8.6 mg/dl (8.4-10.2); Carbon Dioxide 23 mmol/L (22-30); Chloride 113 mmol/L (98-107); Estimated Creatinine Clearance 120 ml/min; Glucose 86 mg/dl (70-99); Magnesium 1.8 mg/dl (1.6-2.3); Potassium 3.9 mmol/L (3.5-5.1); Sodium 140 mmol/L (135-145); eGFR > 60.00
[2025-01-20] MEDS: NSS 1000 IV (05:15)
[2025-01-20 07:14] VITALS: BP 112/64
[2025-01-20] MEDS: NSS IV (10:36)
--- NOTE | 2025-01-20 11:23 | W.PN.HOSP.TC ---
Today's Communication/Plan
-
Discharge after lunch if tolerates diet
Assessment / Plan
Assessment / Plan
Impression:
Patient is a pleasant 59 years old male with history of depression, small bowel obstruction, diverticulitis, inguinal hernia repair who came to the ER with abdominal pain which started last night, pain is constant and located in mid lower abdomen,
radiates to the back, associated with nausea but denies any vomiting, no chest pain or shortness of breath, no fever or chills at home, history of small bowel obstruction in the past.
CT Abdomen pelvis shows:
Several dilated loops of small bowel in left abdomen suggesting developing obstruction versus ileus. Progressed.
Small bilateral groundglass opacities. These are stable suggesting parenchymal scarring or interstitial lung disease.
Hypodense hepatic lesion. Stable from 2019. Probable benign hemangioma considering the stability.
Admitted to the hospital, surgery consulted.
Abdominal pain improved, patient passing gas and had a bowel movement.
Started on clear liquid diet and tolerated.
Low residual diet and discharge home if tolerates
Assessment/plan:
Small bowel obstruction (recurrent)
CT scan shows several dilated loops of small intestine in the left abdomen suggesting developing obstruction versus ileus.
Keep n.p.o. for now.
Surgery consult.
Serial abdominal exam.
IV fluid.
Pain and nausea control.
01/20
Abdominal pain improved, patient passing gas and had a bowel movement.
Started on clear liquid diet and tolerated.
Low residual diet and discharge home if tolerates
History of sarcoidosis
As needed breathing treatment.
Continue Singulair
CODE STATUS: Full code
DVT prophylaxis: Lovenox
Diet: Low residue
CODE STATUS: Full code
Disposition: Discharge after lunch if tolerates diet
Total time spent on today's encounter was 65 minutes which included time spent in counseling the patient/family regarding diagnosis and treatment plan as listed above, goals of care, and symptom management. Case was discussed with nursing staff,
specialists, and care coordinators/case management. All labs and imaging personally reviewed by me. Remainder the time spent in detailed review of previous records, lab data, imaging, and other medical provider documentation.
Anticipated Discharge: Today
Subjective/Interval History
-
Date of Service: January 20, 2025
Patient seen and examined at bedside, denies any chest pain or shortness of breath, no abdominal pain, no nausea, no vomiting, no diarrhea or constipation.
Objective Data
-
Labs:
Laboratory Results
01/20/25
04:01
WBC 5.9
Hgb 13.1
Hct 38.4 L
Plt Count 203 D
Sodium 140
Potassium 3.9
Chloride 113 H
Carbon Dioxide 23
BUN 16
Creatinine 0.7
Glucose 86
Calcium 8.6
Vital Signs:
Vital Signs
Temp Pulse Resp BP Pulse Ox
98.3 F 50 17 112/64 98
01/20/25 07:14 01/20/25 07:14 01/20/25 07:14 01/20/25 07:14 01/20/25 07:14
Physical Exam
-
General: Well Developed and No Apparent Distress
HEENT: Normocephalic, Atraumatic and Moist Mucous Membranes
Respiratory: Clear to Auscultation
Cardiac: Regular Rhythm and S1/S2; Negative Murmur, Rub or Gallop
Breast: Deferred by me
GI: Soft, Nontender, Nondistended and Normal Bowel Sounds; Negative Organomegaly
Rectal: Deferred by Provider
Genito-urinary: No Costovertebral Tender
Musculoskeletal: No Clubbing, No Cyanosis and No Edema
Skin: Negative Rash
Neuro: Nonfocal/Grossly Intact
Psych: Calm
Data Reviewed
-
Diagnostic Radiology: Image personally visualized and interpreted and Report Reviewed by me
CT Scan: Image personally visualized and interpreted and Report Reviewed by me
Ultrasound: Image personally visualized and interpreted and Report Reviewed by me
MRI: Image personally visualized and interpreted and Report Reviewed by me
Medical Tests (Nuc Med, Echo etc): Image personally visualized and interpreted and Report Reviewed by me
Labs: Labs Reviewed by me
Old Records: Reviewed
--- NOTE | 2025-01-20 11:26 | W.DCSUMMARY ---
Discharge Summary
Discharge Data
Date of Admission: 01/19/25
Date of Discharge: 01/20/25
-
Pending Results: No
Hospital Course
Hospital course
Patient is a pleasant 59 years old male with history of depression, small bowel obstruction, diverticulitis, inguinal hernia repair who came to the ER with abdominal pain which started last night, pain is constant and located in mid lower abdomen,
radiates to the back, associated with nausea but denies any vomiting, no chest pain or shortness of breath, no fever or chills at home, history of small bowel obstruction in the past.
CT Abdomen pelvis shows:
Several dilated loops of small bowel in left abdomen suggesting developing obstruction versus ileus. Progressed.
Small bilateral groundglass opacities. These are stable suggesting parenchymal scarring or interstitial lung disease.
Hypodense hepatic lesion. Stable from 2019. Probable benign hemangioma considering the stability.
Admitted to the hospital, surgery consulted.
Abdominal pain improved, patient passing gas and had a bowel movement.
Started on clear liquid diet and tolerated.
Started on low residual diet and discharge home if tolerates
During hospitalization patient was treated from the following
Small bowel obstruction (recurrent)
CT scan shows several dilated loops of small intestine in the left abdomen suggesting developing obstruction versus ileus.
Keep n.p.o. for now.
Surgery consult.
Serial abdominal exam.
IV fluid.
Pain and nausea control.
01/20
Abdominal pain improved, patient passing gas and had a bowel movement.
Started on clear liquid diet and tolerated.
Low residual diet and discharge home if tolerates
History of sarcoidosis
As needed breathing treatment.
Continue Singulair
CODE STATUS: Full code
DVT prophylaxis: Lovenox
Diet: Low residue
CODE STATUS: Full code
Disposition: Discharge after lunch if tolerates diet
Total time spent on today's encounter was 40 minutes which included time spent in counseling the patient/family regarding diagnosis and treatment plan as listed above, goals of care, and symptom management. Case was discussed with nursing staff,
specialists, and care coordinators/case management. All labs and imaging personally reviewed by me. Remainder the time spent in detailed review of previous records, lab data, imaging, and other medical provider documentation.
Anticipated Discharge: Today
Discharge Plan
-
Patient Disposition: Home (Routine Discharge)
Discharge Diagnosis/Procedures: Small bowel obstruction
Diet: As tolerated and Low Residue
Activity: As tolerated
Referrals:
Ar Amezcua MD [Active, Surgical] - in two to four weeks
Luis Daniel Quintana MD [Family Provider, Family Practice] - in less than 1 week
Prescriptions:
Continued
montelukast 10 MG tablet
10 mg PO DAILYPRN PRN (Reason: Allergies)
fluticasone furoate-vilanterol [Breo Ellipta] 1 EACH blister with device
1 ea inhalation R DAILYPRN PRN (Reason: sob)
cetirizine [Zyrtec] 10 mg Tablet
10 mg PO DAILYPRN PRN (Reason: allergies)
ibuprofen 200 mg Capsule
400 mg PO Q6HPRN PRN (Reason: mild pain/fever)
Discharge Orders:
Discharge Patient (As Directed); Ordered 01/20/25
Ordered By: Royal Yang
Discharge Date and Time
Print Language: HUNGARIAN
== END 2025-01-20 12:37 | disposition home or self-care (01) ==
LOC: 3 WEST ACU 11:31
PROVIDERS: Emergency Medicine; ADMITTING PHYSICIAN General Practice; CONSULT PHYSICIAN Surgery; EMERGENCY PHYSICIAN Emergency Medicine; FAMILY PHYSICIAN Family Medicine
DX: K56.609 Unspecified intestinal obstruction, unspecified as to partial versus complete obstruction (principal); R10.9 Unspecified abdominal pain; R11.0 Nausea; F32.A Depression, unspecified; D86.9 Sarcoidosis, unspecified; H91.90 Unspecified hearing loss, unspecified ear; J45.909 Unspecified asthma, uncomplicated; F10.11 Alcohol abuse, in remission; N40.0 Benign prostatic hyperplasia without lower urinary tract symptoms; Z91.013 Allergy to seafood; Z91.018 Allergy to other foods; Z79.51 Long term (current) use of inhaled steroids; Z87.891 Personal history of nicotine dependence; Z80.0 Family history of malignant neoplasm of digestive organs; Z97.4 Presence of external hearing-aid; Z90.49 Acquired absence of other specified parts of digestive tract
CPT/HCPCS: 74177; 80048; 80053; 81003; 81015; 83690; 83735; 85025; 85027; 96361; 96374; 96375; 99285; G0378; Q9967